=== PATIENT | male | born 1975 | race Caucasian/White ===

== ENCOUNTER 2016-05-11 20:35 | Emergency (ER) | payer OTHER | END 2016-05-11 21:10 | disposition home or self-care (01) | LOC: ER 20:35 | DX: S39.012A Strain of muscle, fascia and tendon of lower back, initial encounter (principal); F17.210 Nicotine dependence, cigarettes, uncomplicated; Z88.0 Allergy status to penicillin; X50.0XXA Overexertion from strenuous movement or load, initial encounter | CPT/HCPCS: 96372; J1885 ==